=== PATIENT | female | born 1950 | race Caucasian/White ===

== ENCOUNTER 2021-06-25 12:56 | Emergency (ER) | payer MEDICARE, OTHER ==
[~2021-06-25] VITALS: Ht 167.6 cm; Wt 87.1 kg
[2021-06-25] MEDS ORDERED: DRIZALMA SPRINK20 MG (13:16)
[2021-06-25] MEDS ORDERED: [UNRECOGNIZED DRUG - OTHER] (13:17)
[2021-06-25 14:00] VITALS: BP 146/72
== END 2021-06-25 14:00 | disposition home or self-care (01) ==
LOC: M.ERS 12:56
DX: R53.83 Other fatigue (principal); Z20.822 Contact with and (suspected) exposure to COVID-19; Z90.710 Acquired absence of both cervix and uterus; Z90.89 Acquired absence of other organs; Z91.041 Radiographic dye allergy status